=== PATIENT | female | born 1945 | race Caucasian/White ===

== ENCOUNTER 2018-05-14 12:57 | Emergency (ER) | payer MEDICARE ==
[~2018-05-14] VITALS: Ht 167.6 cm; Wt 81.8 kg
[2018-05-14] MEDS ORDERED: LIDOcaine 1% 30ml preserv. free vial IJ ONE (13:10)
[2018-05-14] MEDS ORDERED: HYDROcodone/acetaminophen 10/325mg tab PO ONE (13:10)
[2018-05-14 15:31] VITALS: BP 135/75
== END 2018-05-14 15:32 | disposition home or self-care (01) ==
LOC: ER 12:57 → EDBD 12:57 → ER 15:32
DX: S01.01XA Laceration without foreign body of scalp, initial encounter (principal); W01.0XXA Fall on same level from slipping, tripping and stumbling without subsequent striking against object, initial encounter; Y93.89 Activity, other specified; Y92.89 Other specified places as the place of occurrence of the external cause; Y99.8 Other external cause status
CPT/HCPCS: 12001; 70450; 99284; A6449; J3490

== ENCOUNTER 2021-07-24 20:25 | Emergency (ER) | payer MEDICARE ==
[~2021-07-24] VITALS: Ht 165.1 cm; Wt 81.8 kg
[2021-07-24] MEDS ORDERED: normal saline 1000ML IV soln IVB ONE (20:45)
[2021-07-24] MEDS ORDERED: ondansetron/PF 4mg/2ml inj IV ONE ×2 (20:45→23:10)
[2021-07-24] MEDS ORDERED: morphine 2 MG/ML inj. syringe IV PRN (20:45)
[2021-07-24] MEDS ORDERED: LORazepam 2 mg/ml vial IV ONE (20:45)
[2021-07-24] MEDS ORDERED: morphine 4 MG/ML inj SYRINge IV ONE (20:45)
[2021-07-24 21:48] LABS: BASOPHILS % (AUTO) 0.4 % (0-1); EOSINOPHILS # (AUTO) 0.1 X10'3 (0-0.9); EOSINOPHILS % (AUTO) 1.8 % (0-6); HEMATOCRIT 33.4 % (35.0-45.0); HEMOGLOBIN 11.2 g/dl (12.0-16.0); LYMPHOCYTES # (AUTO) 1.3 X10'3 (1.1-4.8); LYMPHOCYTES % (AUTO) 18.8 % (21-51); MEAN CORPUSCULAR HEMOGLOBIN 32.8 PG (27.0-31.0); MEAN CORPUSCULAR HGB CONC 33.6 g/dL (33.0-36.5); MEAN CORPUSCULAR VOLUME 97.7 FL (78-98); MEAN PLATELET VOLUME 7.3 FL (7.4-10.4); MONOCYTES # (AUTO) 0.5 X10'3 (0-0.9); PLATELET COUNT 297 X10'3 (140-440); RED BLOOD COUNT 3.42 X10'6 (4.20-5.60); RED CELL DISTRIBUTION WIDTH 11.8 % (11.5-14.5); WHITE BLOOD COUNT 6.9 X10'3 (4.5-11.0)
[2021-07-24 22:42] LABS: ALBUMIN 3.4 G/DL (3.4-5.0); ALBUMIN/GLOBULIN RATIO 0.9 (1.1-1.5); ANION GAP 8 (8-16); ASPARTATE AMINO TRANSFERASE 14 U/L (10-37); BILIRUBIN,TOTAL 0.2 MG/DL (0.1-1.0); BLOOD UREA NITROGEN 18 MG/DL (7-18); BUN/CREATININE RATIO 18.4 (6.6-38.0); CALCIUM 9.5 MG/DL (8.5-10.1); CHLORIDE 105 MMOL/L (99-107); CREATININE 0.98 MG/DL (0.40-0.90); GLUCOSE 139 MG/DL (70-104); POTASSIUM 3.6 MMOL/L (3.5-5.1); SODIUM 140 MMOL/L (135-145); TOTAL CARBON DIOXIDE 27.3 MMOL/L (24-32); TOTAL PROTEIN 7.2 G/DL (6.4-8.2); eGFR 55 ML/MIN
[2021-07-24 22:43] LABS: ALANINE AMINOTRANSFERASE 25 U/L (12-78); ALKALINE PHOSPHATASE 100 IU/L (46-116); ETHANOL < 0.010 GM/DL (0.0-0.010); LIPASE 113 U/L (73-393)
[2021-07-24] MEDS ORDERED: ketorolac trometh. 30mg/ml inj. IV ONE (23:10)
[2021-07-25 01:19] LABS: UA COLLECTION TYPE STRAIGHT CATH
[2021-07-25 01:20] LABS: CLARITY,URINE SLIGHTLY CLOUDY (Clear); COLOR,URINE YELLOW (Yellow); GLUCOSE, URINE NEGATIVE (Neg); PROTEIN,URINE NEGATIVE (Neg)
[2021-07-25 01:21] LABS: KETONES,URINE NEGATIVE (Neg); LEUKOCYTE ESTERASE ,URINE NEGATIVE (Neg); NITRITES, URINE NEGATIVE (Neg); OCCULT BLOOD,URINE NEGATIVE (Neg); UROBILINOGEN,URINE 0.2 E.U/dL (0.2-1.0)
[2021-07-25 01:25] LABS: BACTERIA,URINE NONE SEEN /HPF (Neg); MUCUS STRANDS MANY /LPF (Neg); RBC,URINE NONE SEEN /HPF (0-2); RENAL CELLS, URINE FEW /HPF; SQUAMOUS EPITHELIAL CELL,UR NONE SEEN /LPF (FEW); TRANSITIONAL EPI CELLS,URINE FEW /HPF; WBC,URINE 0-4 /HPF (0-4)
[2021-07-25] MEDS ORDERED: ondansetron 4mg rapidly disintigrating tab PO ONE (01:50)
--- NOTE | 2021-07-25 01:50 | NUR ---
OK TO CHANGE ZOFRAN FROM IV TO PO PT YANKED OUT IV CANNULA
[2021-07-25 02:16] VITALS: BP 148/95
== END 2021-07-25 02:21 | disposition home or self-care (01) ==
LOC: ER 20:25
DX: M54.6 Pain in thoracic spine (principal); M54.50 Low back pain, unspecified; G89.29 Other chronic pain; R10.9 Unspecified abdominal pain; K80.20 Calculus of gallbladder without cholecystitis without obstruction; I10 Essential (primary) hypertension; Z72.89 Other problems related to lifestyle
CPT/HCPCS: 36415; 71045; 74176; 80053; 80320; 81001; 83690; 85025; 96374; 96375; 96376; 99285; J1885; J2060; J2270; J2405; J7030

== ENCOUNTER 2021-08-11 07:09 | Day surgery (SDC) | payer MEDICARE ==
[~2021-08-11] VITALS: Ht 165.1 cm; Wt 79.0 kg
[2021-08-11] MEDS ORDERED: albumin 25% 100mL bottle x 1 IV PRN (07:35)
[2021-08-11] MEDS ORDERED: LISI5TAB22 PO (07:56)
[2021-08-11] MEDS ORDERED: SERT-434 PO (07:56)
[2021-08-11] MEDS ORDERED: HYDR-3965 PO (07:56)
[2021-08-11] MEDS ORDERED: HYDR50TA65 PO (07:56)
[2021-08-11] MEDS ORDERED: LIDOcaine 1% 30ml preserv. free vial IJ STA (08:02)
[2021-08-11 08:15] VITALS: BP 120/80
[2021-08-11 08:55] VITALS: BP 133/79
[2021-08-11 09:15] VITALS: BP 126/63
[2021-08-11 09:30] VITALS: BP 133/70
[2021-08-11 09:45] VITALS: BP 136/57
[2021-08-11 10:00] VITALS: BP 157/80
[2021-08-11 10:46] LABS: GLUCOSE,BODY FLUID 24 MG/DL; LDH,BODY FLUID 380 U/L
[2021-08-11 11:02] LABS: BF RBC COUNT 6200 /CU MM; BF WBC COUNT 395 /CU MM (0-1000); BFAPPEAR CLOUDY; BFCOLOR BROWN; BFVOLUME 30 ML; LYMPHOCYTES,BODY FLUID 5 %; MONOCYTES,BODY FLUID 1 %; NEUTROPHILS,BODY FLUID 94 %
== END 2021-08-11 10:10 | disposition home or self-care (01) ==
LOC: SSTAY O 07:09
PROVIDERS: ATTEND Radiology Vascular & Interventional Radiology
DX: J90 Pleural effusion, not elsewhere classified (principal); I10 Essential (primary) hypertension; F32.9 Major depressive disorder, single episode, unspecified; Z72.89 Other problems related to lifestyle; Z87.19 Personal history of other diseases of the digestive system; Z79.899 Other long term (current) drug therapy
CPT/HCPCS: 32555; 82945; 83615; 84157; 88108; 88305; 89051

== ENCOUNTER 2024-03-21 07:13 | Emergency (ER) | payer MEDICARE ==
[~2024-03-21] VITALS: Ht 165.1 cm; Wt 86.4 kg
[~2024-03-21 07:13] MED LIST: HYDR-3965 PO; HYDR50TA65 PO; LISI5TAB22 PO; SERT-434 PO
[2024-03-21] MEDS ORDERED: ATOR20TA66 PO (08:06)
[2024-03-21 08:10] LABS: BASOPHILS % (AUTO) 0.7 % (0-1); EOSINOPHILS # (AUTO) 0.1 X10'3 (0-0.9); EOSINOPHILS % (AUTO) 2.7 % (0-6); HEMATOCRIT 39.9 % (35.0-45.0); HEMOGLOBIN 13.2 g/dl (12.0-16.0); LYMPHOCYTES # (AUTO) 1.6 X10'3 (1.1-4.8); LYMPHOCYTES % (AUTO) 31.1 % (21-51); MEAN CORPUSCULAR HEMOGLOBIN 33.7 PG (27.0-31.0); MEAN CORPUSCULAR HGB CONC 33.2 g/dL (33.0-36.5); MEAN CORPUSCULAR VOLUME 101.6 FL (78-98); MEAN PLATELET VOLUME 8.6 FL (7.4-10.4); MONOCYTES # (AUTO) 0.4 X10'3 (0-0.9); MONOCYTES % (AUTO) 7.8 % (2-12); NEUTROPHILS # (AUTO) 2.9 X10'3 (1.8-7.7); NEUTROPHILS % (AUTO) 57.7 % (42-75); PLATELET COUNT 232 X10'3 (140-440); RED BLOOD COUNT 3.92 X10'6 (4.20-5.60); RED CELL DISTRIBUTION WIDTH 13.1 % (11.5-14.5)
[2024-03-21 08:28] LABS: ANION GAP 13 (8-16); BLOOD UREA NITROGEN 20 MG/DL (7-18); BUN/CREATININE RATIO 18.7 (10.0-20.0); CALCIUM 9.7 MG/DL (8.5-10.1); CHLORIDE 108 MMOL/L (99-107); CREATININE 1.07 MG/DL (0.40-0.90); GLUCOSE 101 MG/DL (70-104); PRO BRAIN NATRIURETIC PEPTIDE 121 PG/ML (0-450); SODIUM 140 MMOL/L (135-145); TOTAL CARBON DIOXIDE 18.8 MMOL/L (24-32); eCRCL 40 ML/MIN; eGFR 50 ML/MIN
[2024-03-21 08:29] LABS: POTASSIUM 4.5 MMOL/L (3.5-5.1)
[2024-03-21 08:38] VITALS: BP 130/70; PULSE 91; RESP 18; TEMP 98.2; O2SAT 97
== END 2024-03-21 08:35 | disposition home or self-care (01) ==
LOC: ER 07:13
DX: R51.9 Headache, unspecified (principal); I10 Essential (primary) hypertension; F32.A Depression, unspecified; Z79.899 Other long term (current) drug therapy
CPT/HCPCS: 36415; 70450; 71045; 80048; 83880; 84484; 85025; 93005; 99285

== ENCOUNTER 2024-03-24 06:02 | Emergency (ER) | payer MEDICARE ==
[~2024-03-24] VITALS: Ht 165.1 cm; Wt 82.6 kg
[~2024-03-24 06:02] MED LIST changes: +ATOR20TA66 PO; -HYDR-3965 PO; -HYDR50TA65 PO; -SERT-434 PO
[2024-03-24 06:38] LABS: BASOPHILS % (AUTO) 0.5 % (0-1); EOSINOPHILS % (AUTO) 0.2 % (0-6); HEMATOCRIT 37.8 % (35.0-45.0); HEMOGLOBIN 12.8 g/dl (12.0-16.0); LYMPHOCYTES # (AUTO) 0.8 X10'3 (1.1-4.8); LYMPHOCYTES % (AUTO) 14.7 % (21-51); MEAN CORPUSCULAR HEMOGLOBIN 34.5 PG (27.0-31.0); MEAN CORPUSCULAR HGB CONC 33.8 g/dL (33.0-36.5); MEAN CORPUSCULAR VOLUME 101.9 FL (78-98); MEAN PLATELET VOLUME 7.8 FL (7.4-10.4); MONOCYTES # (AUTO) 0.2 X10'3 (0-0.9); MONOCYTES % (AUTO) 3.1 % (2-12); NEUTROPHILS # (AUTO) 4.7 X10'3 (1.8-7.7); NEUTROPHILS % (AUTO) 81.5 % (42-75); PLATELET COUNT 215 X10'3 (140-440); RED BLOOD COUNT 3.71 X10'6 (4.20-5.60); WHITE BLOOD COUNT 5.8 X10'3 (4.5-11.0)
[2024-03-24 06:49] LABS: ALBUMIN 4.1 G/DL (3.4-5.0); ANION GAP 18 (8-16); BLOOD UREA NITROGEN 23 MG/DL (7-18); BUN/CREATININE RATIO 23.5 (10.0-20.0); CALCIUM 9.3 MG/DL (8.5-10.1); CHLORIDE 105 MMOL/L (99-107); CREATININE 0.98 MG/DL (0.40-0.90); GLUCOSE 89 MG/DL (70-104); POTASSIUM 4.5 MMOL/L (3.5-5.1); SODIUM 140 MMOL/L (135-145); TOTAL CARBON DIOXIDE 16.8 MMOL/L (24-32); eCRCL 43 ML/MIN; eGFR 55 ML/MIN
[2024-03-24 06:54] LABS: APTT 27 SECONDS (22-32); PROTHROMBIN TIME 10.5 SECONDS (9.0-12.0)
[2024-03-24 12:14] VITALS: BP 136/81; PULSE 91; RESP 15; TEMP 98.6; O2SAT 97
== END 2024-03-24 09:20 | disposition home or self-care (01) ==
LOC: ER 06:03
DX: R47.81 Slurred speech (principal); I10 Essential (primary) hypertension; F32.A Depression, unspecified; Z72.89 Other problems related to lifestyle; W18.39XA Other fall on same level, initial encounter; Y93.89 Activity, other specified; Y92.89 Other specified places as the place of occurrence of the external cause; Y99.8 Other external cause status
CPT/HCPCS: 36415; 70450; 70490; 71045; 80048; 85025; 85610; 85730; 93005; 99285

== ENCOUNTER 2025-01-11 06:08 | Emergency (ER) | payer MEDICARE ==
[~2025-01-11] VITALS: Ht 165.1 cm; Wt 85.9 kg
[2025-01-11 06:14] VITALS: TEMP 97.7
[2025-01-11 06:51] LABS: BASOPHILS % (AUTO) 0.7 % (0-1); EOSINOPHILS # (AUTO) 0.1 X10'3 (0-0.9); HEMATOCRIT 38.7 % (35.0-45.0); HEMOGLOBIN 13.2 g/dl (12.0-16.0); LYMPHOCYTES # (AUTO) 1.6 X10'3 (1.1-4.8); LYMPHOCYTES % (AUTO) 35.1 % (21-51); MEAN CORPUSCULAR HEMOGLOBIN 34.7 PG (27.0-31.0); MEAN CORPUSCULAR VOLUME 101.9 FL (78-98); MEAN PLATELET VOLUME 7.8 FL (7.4-10.4); MONOCYTES # (AUTO) 0.3 X10'3 (0-0.9); MONOCYTES % (AUTO) 7.6 % (2-12); NEUTROPHILS # (AUTO) 2.4 X10'3 (1.8-7.7); NEUTROPHILS % (AUTO) 54.6 % (42-75); PLATELET COUNT 206 X10'3 (140-440); RED CELL DISTRIBUTION WIDTH 11.6 % (11.5-14.5); WHITE BLOOD COUNT 4.5 X10'3 (4.5-11.0)
[2025-01-11 07:02] LABS: ALANINE AMINOTRANSFERASE 17 U/L (12-78); ALBUMIN 4.1 G/DL (3.4-5.0); ALBUMIN/GLOBULIN RATIO 1.4 (1.1-1.5); ALKALINE PHOSPHATASE 87 IU/L (46-116); ANION GAP 6 (8-16); ASPARTATE AMINO TRANSFERASE 17 U/L (10-37); BILIRUBIN,TOTAL 0.9 MG/DL (0.1-1.0); BLOOD UREA NITROGEN 11 MG/DL (7-18); BUN/CREATININE RATIO 13.3 (10.0-20.0); CALCIUM 9.9 MG/DL (8.5-10.1); CHLORIDE 106 MMOL/L (99-107); CREATININE 0.83 MG/DL (0.40-0.90); GLUCOSE 121 MG/DL (70-104); POTASSIUM 4.7 MMOL/L (3.5-5.1); SODIUM 139 MMOL/L (135-145); TOTAL CARBON DIOXIDE 27.4 MMOL/L (24-32); TOTAL PROTEIN 7.1 G/DL (6.4-8.2); eCRCL 50 ML/MIN; eGFR 66 ML/MIN
[2025-01-11] MEDS: propranolol 10mg tablet PO ONE (07:04)
[2025-01-11 07:10] LABS: PRO BRAIN NATRIURETIC PEPTIDE 203 PG/ML (0-450)
[2025-01-11] MEDS ORDERED: PROP10TA10 PO (07:40)
[2025-01-11 08:06] VITALS: BP 147/79; PULSE 63; RESP 15; O2SAT 98
== END 2025-01-11 08:09 | disposition home or self-care (01) ==
LOC: ER 06:08
DX: R00.2 Palpitations (principal); F41.9 Anxiety disorder, unspecified; I10 Essential (primary) hypertension; I48.91 Unspecified atrial fibrillation; F32.A Depression, unspecified
CPT/HCPCS: 36415; 71045; 80053; 83880; 84484; 85025; 93005; 99285